=== PATIENT | male | born 1940 | race Caucasian/White ===

== ENCOUNTER 2021-11-17 14:16 | Inpatient (IN) ==
[2021-11-17] MEDS ORDERED: Dextrose Gel 15 GM/37.5 ML TUBE PO PRN ×2 (17:16)
[2021-11-17] MEDS ORDERED: *HR* Dextrose 50 % in Water (Syg) 50 ML SYRINGE IVP PRN (17:16)
[2021-11-17] MEDS ORDERED: D5% in Water 1,000 ML IVC PRN (17:16)
[2021-11-17] MEDS: Insulin LISPRO 300 UNITS/3 ML VIAL SUBQ SCH ×2 (17:48→20:26)
[2021-11-17] MEDS: *HR* OxyCODONE Immed Rel 5 MG TABLET PO PRN (18:16)
[2021-11-17] MEDS: Furosemide 20 MG TABLET PO SCH (18:17)
[2021-11-17] MEDS: *HR* Amiodarone 200 MG TABLET PO SCH (20:26)
[2021-11-17] MEDS: Sennosides/Docusate Sodium TABLET PO SCH (20:26)
[2021-11-17] MEDS: polyethylene glycoL 3350 17 GM POWD.PACK PO SCH (20:26)
[2021-11-18 04:29] LABS: Basophils # 0.1 K/mcL (0.0-0.2); Basophils % 0.8 %; Eosinophils # 0.6 K/mcL (0.0-0.6); Eosinophils % 6.2 %; Hematocrit 33.2 % (37.5-50.1); Hemoglobin 10.7 g/dL (12.9-16.9); Immature Granulocytes % 0.6 % (0-4); Lymphocytes # 0.7 K/mcL (0.6-4.6); Lymphocytes % 7.2 %; Mean Corpuscular HGB Conc 32.2 g/dL (31.6-35.5); Mean Corpuscular Hemoglobin 25.7 pg (28.0-33.3); Mean Corpuscular Volume 79.6 fL (83.0-100.0); Mean Platelet Volume 11.4 fL (9.4-12.4); Monocytes % 10.2 %; Platelet Count 248 K/mcL (140-400); Red Blood Count 4.17 M/mcL (4.19-5.50); Red Cell Distribution Width 15.1 % (11.5-14.5); White Blood Count 9.3 K/mcL (4.3-11.1)
[2021-11-18 04:32] LABS: Platelet Estimate Normal (Normal)
[2021-11-18 04:44] LABS: Calcium 9.8 mg/dL (8.6-10.3); Potassium 4.7 mEq/L (3.5-5.1)
[2021-11-18] MEDS ORDERED: *HR* Enoxaparin 40 MG/0.4 ML SYRINGE SQ SCH (07:00)
[2021-11-18] MEDS: *HR* OxyCODONE Immed Rel 5 MG TABLET PO PRN ×2 (08:01→16:38)
[2021-11-18] MEDS: *HR* Amiodarone 200 MG TABLET PO SCH ×2 (08:04→20:44)
[2021-11-18] MEDS: Furosemide 20 MG TABLET PO SCH ×2 (08:06→16:36)
[2021-11-18] MEDS: polyethylene glycoL 3350 17 GM POWD.PACK PO SCH ×2 (08:07→20:45)
[2021-11-18] MEDS: Aspirin 81 MG TAB.CHEW PO SCH (08:10)
[2021-11-18] MEDS: Cholecalciferol (D-3) 1,000 UNIT (25MCG) TABLET PO SCH (08:11)
[2021-11-18] MEDS: Metoprolol XL (24 HR) Succ 50 MG TAB.ER.24H PO SCH (08:12)
[2021-11-18] MEDS: Zinc Sulfate 220 MG CAPSULE PO SCH (08:12)
[2021-11-18] MEDS: Insulin LISPRO 300 UNITS/3 ML VIAL SUBQ SCH ×4 (11:31→20:46)
[2021-11-18] MEDS: Sennosides/Docusate Sodium TABLET PO SCH ×2 (11:33→20:45)
[2021-11-18] MEDS: FLUoxetine HCl 10 MG CAPSULE PO SCH (12:53)
[2021-11-18] MEDS ORDERED: Nitroglycerin 0.4 MG TAB.SUBL SL PRN (19:43)
[2021-11-18 19:51] LABS: Estimated Average Glucose 154 mg/dl
[2021-11-18] MEDS: Acetaminophen 325 MG TABLET PO PRN (20:45)
[2021-11-19] MEDS: polyethylene glycoL 3350 17 GM POWD.PACK PO SCH ×2 (07:48→21:13)
[2021-11-19] MEDS: Sennosides/Docusate Sodium TABLET PO SCH ×2 (07:49→21:06)
[2021-11-19] MEDS: Insulin LISPRO 300 UNITS/3 ML VIAL SUBQ SCH ×4 (07:57→21:06)
[2021-11-19] MEDS: Metoprolol XL (24 HR) Succ 50 MG TAB.ER.24H PO SCH (07:58)
[2021-11-19] MEDS: Furosemide 20 MG TABLET PO SCH ×2 (07:58→17:05)
[2021-11-19] MEDS: Zinc Sulfate 220 MG CAPSULE PO SCH (07:58)
[2021-11-19] MEDS: *HR* Amiodarone 200 MG TABLET PO SCH ×2 (07:58→21:05)
[2021-11-19] MEDS: Cholecalciferol (D-3) 1,000 UNIT (25MCG) TABLET PO SCH (07:58)
[2021-11-19] MEDS: FLUoxetine HCl 10 MG CAPSULE PO SCH (07:58)
[2021-11-19] MEDS: Aspirin 81 MG TAB.CHEW PO SCH (07:58)
[2021-11-19] MEDS: *HR* OxyCODONE Immed Rel 5 MG TABLET PO PRN (13:06)
[2021-11-19] MEDS: Acetaminophen 325 MG TABLET PO PRN (21:06)
[2021-11-20 05:25] LABS: Basophils # 0.1 K/mcL (0.0-0.2); Basophils % 0.7 %; Eosinophils # 0.5 K/mcL (0.0-0.6); Eosinophils % 5.6 %; Hemoglobin 10.7 g/dL (12.9-16.9); Immature Granulocytes % 0.6 % (0-4); Lymphocytes # 0.7 K/mcL (0.6-4.6); Lymphocytes % 7.9 %; Mean Corpuscular HGB Conc 32.4 g/dL (31.6-35.5); Mean Corpuscular Hemoglobin 25.9 pg (28.0-33.3); Mean Corpuscular Volume 79.9 fL (83.0-100.0); Mean Platelet Volume 11.4 fL (9.4-12.4); Monocytes # 0.9 K/mcL (0.0-1.3); Monocytes % 10.4 %; Neutrophils # 6.6 K/mcL (1.6-8.9); Platelet Count 258 K/mcL (140-400); Red Blood Count 4.13 M/mcL (4.19-5.50); Red Cell Distribution Width 15.5 % (11.5-14.5); Segmented Neutrophils % 74.8 %; White Blood Count 8.9 K/mcL (4.3-11.1)
[2021-11-20 05:41] LABS: Calcium 9.8 mg/dL (8.6-10.3)
[2021-11-20] MEDS: Insulin LISPRO 300 UNITS/3 ML VIAL SUBQ SCH ×4 (09:27→21:20)
[2021-11-20] MEDS: Metoprolol XL (24 HR) Succ 50 MG TAB.ER.24H PO SCH (09:28)
[2021-11-20] MEDS: Aspirin 81 MG TAB.CHEW PO SCH (09:29)
[2021-11-20] MEDS: *HR* Amiodarone 200 MG TABLET PO SCH ×2 (09:29→21:23)
[2021-11-20] MEDS: Furosemide 20 MG TABLET PO SCH (09:29)
[2021-11-20] MEDS: Cholecalciferol (D-3) 1,000 UNIT (25MCG) TABLET PO SCH (09:29)
[2021-11-20] MEDS: Zinc Sulfate 220 MG CAPSULE PO SCH (09:29)
[2021-11-20] MEDS: FLUoxetine HCl 10 MG CAPSULE PO SCH (09:29)
[2021-11-20] MEDS: polyethylene glycoL 3350 17 GM POWD.PACK PO SCH ×2 (09:30→21:23)
[2021-11-20] MEDS: *HR* OxyCODONE Immed Rel 5 MG TABLET PO PRN (09:30)
[2021-11-20] MEDS: Sennosides/Docusate Sodium TABLET PO SCH ×2 (09:31→21:22)
[2021-11-21 05:10] LABS: Basophils # 0.1 K/mcL (0.0-0.2); Basophils % 0.6 %; Eosinophils # 0.4 K/mcL (0.0-0.6); Eosinophils % 3.7 %; Immature Granulocytes % 0.5 % (0-4); Lymphocytes # 0.6 K/mcL (0.6-4.6); Lymphocytes % 5.3 %; Mean Corpuscular HGB Conc 32.4 g/dL (31.6-35.5); Mean Corpuscular Hemoglobin 25.9 pg (28.0-33.3); Mean Platelet Volume 11.6 fL (9.4-12.4); Monocytes % 8.8 %; Neutrophils # 9.3 K/mcL (1.6-8.9); Platelet Count 267 K/mcL (140-400); Red Blood Count 4.25 M/mcL (4.19-5.50); Red Cell Distribution Width 15.5 % (11.5-14.5); Segmented Neutrophils % 81.1 %; White Blood Count 11.5 K/mcL (4.3-11.1)
[2021-11-21 05:25] LABS: Albumin 3.4 g/dL (3.5-5.7); Albumin/Globulin Ratio 1.1 (1.1-2.2); Bilirubin,Total 0.9 mg/dL (0.3-1.0); Calcium 9.8 mg/dL (8.6-10.3); Potassium 4.2 mEq/L (3.5-5.1); Total Protein 6.4 g/dL (6.4-8.9)
[2021-11-21] MEDS: Insulin LISPRO 300 UNITS/3 ML VIAL SUBQ SCH ×3 (09:19→17:50)
[2021-11-21] MEDS: Sennosides/Docusate Sodium TABLET PO SCH (09:21)
[2021-11-21] MEDS: polyethylene glycoL 3350 17 GM POWD.PACK PO SCH (09:21)
[2021-11-21] MEDS: Aspirin 81 MG TAB.CHEW PO SCH (10:15)
[2021-11-21] MEDS: Metoprolol XL (24 HR) Succ 50 MG TAB.ER.24H PO SCH (10:15)
[2021-11-21] MEDS: Cholecalciferol (D-3) 1,000 UNIT (25MCG) TABLET PO SCH (10:15)
[2021-11-21] MEDS: *HR* Amiodarone 200 MG TABLET PO SCH ×2 (10:15→20:34)
[2021-11-21] MEDS: FLUoxetine HCl 10 MG CAPSULE PO SCH (10:15)
[2021-11-21] MEDS: Zinc Sulfate 220 MG CAPSULE PO SCH (10:16)
[2021-11-21] MEDS: Acetaminophen 325 MG TABLET PO PRN (20:34)
[2021-11-22 04:34] LABS: Basophils # 0.1 K/mcL (0.0-0.2); Basophils % 0.4 %; Eosinophils # 0.5 K/mcL (0.0-0.6); Eosinophils % 3.2 %; Hematocrit 35.7 % (37.5-50.1); Hemoglobin 11.4 g/dL (12.9-16.9); Immature Granulocytes % 0.5 % (0-4); Lymphocytes # 0.7 K/mcL (0.6-4.6); Mean Corpuscular HGB Conc 31.9 g/dL (31.6-35.5); Mean Corpuscular Hemoglobin 25.7 pg (28.0-33.3); Mean Corpuscular Volume 80.4 fL (83.0-100.0); Mean Platelet Volume 11.6 fL (9.4-12.4); Monocytes # 1.2 K/mcL (0.0-1.3); Monocytes % 8.4 %; Platelet Count 281 K/mcL (140-400); Red Blood Count 4.44 M/mcL (4.19-5.50); Red Cell Distribution Width 15.7 % (11.5-14.5); Segmented Neutrophils % 82.5 %; White Blood Count 14.6 K/mcL (4.3-11.1)
[2021-11-22 04:35] LABS: Neutrophils # 12.1 K/mcL (1.6-8.9)
[2021-11-22 04:49] LABS: Calcium 9.8 mg/dL (8.6-10.3); Potassium 4.3 mEq/L (3.5-5.1)
[2021-11-22] MEDS: Insulin LISPRO 300 UNITS/3 ML VIAL SUBQ SCH ×5 (05:45→20:20)
[2021-11-22] MEDS: Sennosides/Docusate Sodium TABLET PO SCH ×2 (05:46→09:49)
[2021-11-22] MEDS: polyethylene glycoL 3350 17 GM POWD.PACK PO SCH ×2 (05:46→09:49)
[2021-11-22] MEDS: Zinc Sulfate 220 MG CAPSULE PO SCH (09:50)
[2021-11-22] MEDS: Cholecalciferol (D-3) 1,000 UNIT (25MCG) TABLET PO SCH (09:50)
[2021-11-22] MEDS: Aspirin 81 MG TAB.CHEW PO SCH (09:50)
[2021-11-22] MEDS: *HR* Amiodarone 200 MG TABLET PO SCH ×2 (09:50→20:44)
[2021-11-22] MEDS: FLUoxetine HCl 10 MG CAPSULE PO SCH (09:50)
[2021-11-22] MEDS: Metoprolol XL (24 HR) Succ 50 MG TAB.ER.24H PO SCH (09:50)
[2021-11-22 12:04] LABS: Bilirubin,Urine Negative (Negative); Blood,Urine Large (Negative); Clarity,Urine Clear (Clear); Color,Urine Yellow (Yellow); Glucose,Urine (UA) Normal (Normal); Ketones,Urine Negative (Negative); Leukocyte Esterase,Urine Small (Negative); Nitrite,Urine Positive (Negative); Protein,Urine 100 mg/dL (Neg-Trace); Specific Gravity,Urine >= 1.030 (1.010-1.025); Urobilinogen,Urine Normal (Normal)
[2021-11-22 12:11] LABS: Bacteria,Urine Many per hpf (None-Few); RBC,Urine TNTC per hpf (0-3); WBC,Urine TNTC per hpf (0-3)
[2021-11-22] MEDS ORDERED: 0.9 % Sodium Chloride 1,000 ML IVC SCH (14:30)
[2021-11-22] MEDS: cefTRIAXone 1,000 MG in Water for inj. (sterile) 10 ML IVP SCH (15:21)
[2021-11-22] MEDS: *HR* OxyCODONE Immed Rel 5 MG TABLET PO PRN (20:44)
[2021-11-23] MEDS: Sennosides/Docusate Sodium TABLET PO SCH ×3 (00:15→20:32)
[2021-11-23] MEDS: polyethylene glycoL 3350 17 GM POWD.PACK PO SCH ×3 (00:15→20:32)
[2021-11-23 04:32] LABS: Basophils # 0.1 K/mcL (0.0-0.2); Basophils % 0.4 %; Eosinophils # 0.4 K/mcL (0.0-0.6); Eosinophils % 2.9 %; Hematocrit 32.9 % (37.5-50.1); Hemoglobin 10.6 g/dL (12.9-16.9); Immature Granulocytes % 0.4 % (0-4); Lymphocytes # 0.6 K/mcL (0.6-4.6); Lymphocytes % 4.3 %; Mean Corpuscular HGB Conc 32.2 g/dL (31.6-35.5); Mean Corpuscular Hemoglobin 26.3 pg (28.0-33.3); Mean Corpuscular Volume 81.6 fL (83.0-100.0); Mean Platelet Volume 11.7 fL (9.4-12.4); Monocytes % 7.2 %; Platelet Count 282 K/mcL (140-400); Red Blood Count 4.03 M/mcL (4.19-5.50); Red Cell Distribution Width 15.8 % (11.5-14.5); Segmented Neutrophils % 84.8 %; White Blood Count 13.5 K/mcL (4.3-11.1)
[2021-11-23 04:34] LABS: Neutrophils # 11.5 K/mcL (1.6-8.9)
[2021-11-23 04:35] LABS: Platelet Estimate Normal (Normal)
[2021-11-23 04:44] LABS: Calcium 9.8 mg/dL (8.6-10.3)
[2021-11-23] MEDS: Insulin LISPRO 300 UNITS/3 ML VIAL SUBQ SCH ×4 (07:35→20:32)
[2021-11-23] MEDS: Aspirin 81 MG TAB.CHEW PO SCH (08:52)
[2021-11-23] MEDS: Zinc Sulfate 220 MG CAPSULE PO SCH (08:52)
[2021-11-23] MEDS: FLUoxetine HCl 10 MG CAPSULE PO SCH (08:52)
[2021-11-23] MEDS: Cholecalciferol (D-3) 1,000 UNIT (25MCG) TABLET PO SCH (08:52)
[2021-11-23] MEDS: Metoprolol XL (24 HR) Succ 50 MG TAB.ER.24H PO SCH (08:52)
[2021-11-23] MEDS: *HR* Amiodarone 200 MG TABLET PO SCH ×2 (08:53→20:31)
[2021-11-23] MEDS: cefTRIAXone 1,000 MG in Water for inj. (sterile) 10 ML IVP SCH (16:07)
[2021-11-23] MEDS: Acetaminophen 325 MG TABLET PO PRN (23:28)
[2021-11-24 04:47] LABS: Basophils # 0.1 K/mcL (0.0-0.2); Basophils % 0.5 %; Eosinophils # 0.3 K/mcL (0.0-0.6); Eosinophils % 2.8 %; Hematocrit 32.4 % (37.5-50.1); Hemoglobin 10.5 g/dL (12.9-16.9); Immature Granulocytes % 0.4 % (0-4); Lymphocytes # 0.6 K/mcL (0.6-4.6); Mean Corpuscular HGB Conc 32.4 g/dL (31.6-35.5); Mean Corpuscular Hemoglobin 26.4 pg (28.0-33.3); Mean Corpuscular Volume 81.6 fL (83.0-100.0); Mean Platelet Volume 12.3 fL (9.4-12.4); Monocytes # 0.8 K/mcL (0.0-1.3); Monocytes % 6.9 %; Neutrophils # 10.2 K/mcL (1.6-8.9); Platelet Count 274 K/mcL (140-400); Red Blood Count 3.97 M/mcL (4.19-5.50); Red Cell Distribution Width 15.6 % (11.5-14.5); Segmented Neutrophils % 84.4 %; White Blood Count 12.1 K/mcL (4.3-11.1)
[2021-11-24 05:01] LABS: Calcium 9.6 mg/dL (8.6-10.3); Potassium 4.5 mEq/L (3.5-5.1)
[2021-11-24] MEDS: Insulin LISPRO 300 UNITS/3 ML VIAL SUBQ SCH ×4 (07:59→20:09)
[2021-11-24] MEDS: polyethylene glycoL 3350 17 GM POWD.PACK PO SCH ×2 (08:00→20:10)
[2021-11-24] MEDS: Sennosides/Docusate Sodium TABLET PO SCH ×2 (08:00→20:10)
[2021-11-24] MEDS: *HR* Amiodarone 200 MG TABLET PO SCH ×2 (08:11→20:24)
[2021-11-24] MEDS: Metoprolol XL (24 HR) Succ 50 MG TAB.ER.24H PO SCH (08:11)
[2021-11-24] MEDS: Zinc Sulfate 220 MG CAPSULE PO SCH (08:12)
[2021-11-24] MEDS: Aspirin 81 MG TAB.CHEW PO SCH (08:12)
[2021-11-24] MEDS: Cholecalciferol (D-3) 1,000 UNIT (25MCG) TABLET PO SCH (08:12)
[2021-11-24] MEDS: FLUoxetine HCl 10 MG CAPSULE PO SCH (08:12)
[2021-11-24] MEDS: Acetaminophen 325 MG TABLET PO PRN ×2 (09:01→16:12)
[2021-11-24] MEDS: cefTRIAXone 1,000 MG in Water for inj. (sterile) 10 ML IVP SCH (16:11)
[2021-11-25] MEDS: Acetaminophen 325 MG TABLET PO PRN (01:12)
[2021-11-25] MEDS: Sennosides/Docusate Sodium TABLET PO SCH ×2 (08:11→20:17)
[2021-11-25] MEDS: Cholecalciferol (D-3) 1,000 UNIT (25MCG) TABLET PO SCH (08:11)
[2021-11-25] MEDS: Aspirin 81 MG TAB.CHEW PO SCH (08:11)
[2021-11-25] MEDS: Zinc Sulfate 220 MG CAPSULE PO SCH (08:11)
[2021-11-25] MEDS: FLUoxetine HCl 10 MG CAPSULE PO SCH (08:12)
[2021-11-25] MEDS: Metoprolol XL (24 HR) Succ 50 MG TAB.ER.24H PO SCH (08:12)
[2021-11-25] MEDS: Insulin LISPRO 300 UNITS/3 ML VIAL SUBQ SCH ×4 (08:18→20:05)
[2021-11-25] MEDS: *HR* Amiodarone 200 MG TABLET PO SCH (09:25)
[2021-11-25] MEDS: polyethylene glycoL 3350 17 GM POWD.PACK PO SCH ×2 (09:47→20:17)
[2021-11-25] MEDS: Mirtazapine 15 MG TABLET PO SCH ×2 (10:36→20:14)
[2021-11-25] MEDS: Cefdinir 300 MG CAPSULE PO SCH (18:11)
[2021-11-26 05:22] LABS: Basophils # 0.1 K/mcL (0.0-0.2); Basophils % 0.5 %; Eosinophils # 0.3 K/mcL (0.0-0.6); Eosinophils % 2.3 %; Hematocrit 30.2 % (37.5-50.1); Immature Granulocytes % 0.3 % (0-4); Lymphocytes # 0.7 K/mcL (0.6-4.6); Lymphocytes % 5.6 %; Mean Corpuscular HGB Conc 33.1 g/dL (31.6-35.5); Mean Corpuscular Hemoglobin 26.5 pg (28.0-33.3); Mean Corpuscular Volume 79.9 fL (83.0-100.0); Mean Platelet Volume 12.5 fL (9.4-12.4); Monocytes # 0.9 K/mcL (0.0-1.3); Monocytes % 6.9 %; Neutrophils # 10.8 K/mcL (1.6-8.9); Platelet Count 264 K/mcL (140-400); Red Blood Count 3.78 M/mcL (4.19-5.50); Red Cell Distribution Width 15.3 % (11.5-14.5); Segmented Neutrophils % 84.4 %; White Blood Count 12.8 K/mcL (4.3-11.1)
[2021-11-26 05:28] LABS: Calcium 9.5 mg/dL (8.6-10.3); Magnesium 1.9 mg/dL (1.6-2.6); Potassium 3.6 mEq/L (3.5-5.1)
[2021-11-26] MEDS: Insulin LISPRO 300 UNITS/3 ML VIAL SUBQ SCH ×4 (07:32→19:37)
[2021-11-26] MEDS: Cholecalciferol (D-3) 1,000 UNIT (25MCG) TABLET PO SCH (07:57)
[2021-11-26] MEDS: FLUoxetine HCl 10 MG CAPSULE PO SCH (07:57)
[2021-11-26] MEDS: Zinc Sulfate 220 MG CAPSULE PO SCH (07:57)
[2021-11-26] MEDS: Cefdinir 300 MG CAPSULE PO SCH (07:57)
[2021-11-26] MEDS: *HR* Amiodarone 200 MG TABLET PO SCH (07:57)
[2021-11-26] MEDS: Aspirin 81 MG TAB.CHEW PO SCH (07:57)
[2021-11-26] MEDS: Metoprolol XL (24 HR) Succ 50 MG TAB.ER.24H PO SCH (07:58)
[2021-11-26] MEDS: Sennosides/Docusate Sodium TABLET PO SCH ×2 (07:58→19:50)
[2021-11-26] MEDS: polyethylene glycoL 3350 17 GM POWD.PACK PO SCH ×2 (07:58→19:50)
[2021-11-26] MEDS: Mirtazapine 15 MG TABLET PO SCH (19:48)
[2021-11-27] MEDS: Insulin LISPRO 300 UNITS/3 ML VIAL SUBQ SCH ×4 (08:16→20:18)
[2021-11-27] MEDS: *HR* Amiodarone 200 MG TABLET PO SCH (09:43)
[2021-11-27] MEDS: Sennosides/Docusate Sodium TABLET PO SCH ×2 (09:47→20:40)
[2021-11-27] MEDS: Aspirin 81 MG TAB.CHEW PO SCH (09:47)
[2021-11-27] MEDS: polyethylene glycoL 3350 17 GM POWD.PACK PO SCH ×2 (09:47→20:40)
[2021-11-27] MEDS: FLUoxetine HCl 10 MG CAPSULE PO SCH ×2 (09:47→10:31)
[2021-11-27] MEDS: Cefdinir 300 MG CAPSULE PO SCH ×2 (09:47→10:31)
[2021-11-27] MEDS: Metoprolol XL (24 HR) Succ 50 MG TAB.ER.24H PO SCH ×2 (09:47→10:31)
[2021-11-27] MEDS: Cholecalciferol (D-3) 1,000 UNIT (25MCG) TABLET PO SCH (09:47)
[2021-11-27] MEDS: Zinc Sulfate 220 MG CAPSULE PO SCH (09:48)
[2021-11-27] MEDS: Mirtazapine 15 MG TABLET PO SCH (20:38)
[2021-11-28 05:16] LABS: Basophils # 0.1 K/mcL (0.0-0.2); Basophils % 0.7 %; Eosinophils # 0.5 K/mcL (0.0-0.6); Hematocrit 32.7 % (37.5-50.1); Hemoglobin 10.5 g/dL (12.9-16.9); Immature Granulocytes % 0.3 % (0-4); Lymphocytes # 0.7 K/mcL (0.6-4.6); Lymphocytes % 7.5 %; Mean Corpuscular HGB Conc 32.1 g/dL (31.6-35.5); Mean Corpuscular Hemoglobin 25.7 pg (28.0-33.3); Mean Platelet Volume 12.8 fL (9.4-12.4); Monocytes # 0.9 K/mcL (0.0-1.3); Neutrophils # 7.2 K/mcL (1.6-8.9); Platelet Count 316 K/mcL (140-400); Red Blood Count 4.09 M/mcL (4.19-5.50); Red Cell Distribution Width 15.3 % (11.5-14.5); Segmented Neutrophils % 76.5 %; White Blood Count 9.4 K/mcL (4.3-11.1)
[2021-11-28 05:30] LABS: Calcium 9.4 mg/dL (8.6-10.3); Potassium 3.8 mEq/L (3.5-5.1)
[2021-11-28] MEDS: Insulin LISPRO 300 UNITS/3 ML VIAL SUBQ SCH ×4 (09:08→21:09)
[2021-11-28] MEDS: FLUoxetine HCl 10 MG CAPSULE PO SCH (09:08)
[2021-11-28] MEDS: Cefdinir 300 MG CAPSULE PO SCH (09:08)
[2021-11-28] MEDS: Metoprolol XL (24 HR) Succ 50 MG TAB.ER.24H PO SCH (09:08)
[2021-11-28] MEDS: Cholecalciferol (D-3) 1,000 UNIT (25MCG) TABLET PO SCH (09:08)
[2021-11-28] MEDS: *HR* Amiodarone 200 MG TABLET PO SCH (09:08)
[2021-11-28] MEDS: Zinc Sulfate 220 MG CAPSULE PO SCH (09:08)
[2021-11-28] MEDS: Aspirin 81 MG TAB.CHEW PO SCH (09:09)
[2021-11-28] MEDS: polyethylene glycoL 3350 17 GM POWD.PACK PO SCH ×2 (11:42→21:08)
[2021-11-28] MEDS: Sennosides/Docusate Sodium TABLET PO SCH ×2 (11:43→21:08)
[2021-11-28] MEDS: Mirtazapine 15 MG TABLET PO SCH (21:09)
[2021-11-29] MEDS: Insulin LISPRO 300 UNITS/3 ML VIAL SUBQ SCH ×4 (08:20→20:33)
[2021-11-29] MEDS: FLUoxetine HCl 10 MG CAPSULE PO SCH (08:28)
[2021-11-29] MEDS: Aspirin 81 MG TAB.CHEW PO SCH (08:28)
[2021-11-29] MEDS: Sennosides/Docusate Sodium TABLET PO SCH (08:28)
[2021-11-29] MEDS: *HR* Amiodarone 200 MG TABLET PO SCH (08:28)
[2021-11-29] MEDS: Zinc Sulfate 220 MG CAPSULE PO SCH (08:28)
[2021-11-29] MEDS: Cholecalciferol (D-3) 1,000 UNIT (25MCG) TABLET PO SCH (08:28)
[2021-11-29] MEDS: Metoprolol XL (24 HR) Succ 50 MG TAB.ER.24H PO SCH (08:34)
[2021-11-29] MEDS: polyethylene glycoL 3350 17 GM POWD.PACK PO SCH (12:22)
[2021-11-29] MEDS ORDERED: Sennosides/Docusate Sodium TABLET PO PRN (12:22)
[2021-11-29] MEDS ORDERED: polyethylene glycoL 3350 17 GM POWD.PACK PO PRN (12:22)
[2021-11-29] MEDS: Mirtazapine 15 MG TABLET PO SCH (20:39)
[2021-11-30] MEDS: Insulin LISPRO 300 UNITS/3 ML VIAL SUBQ SCH ×4 (08:05→20:46)
[2021-11-30] MEDS: Metoprolol XL (24 HR) Succ 50 MG TAB.ER.24H PO SCH (09:37)
[2021-11-30] MEDS: Aspirin 81 MG TAB.CHEW PO SCH (09:37)
[2021-11-30] MEDS: Cholecalciferol (D-3) 1,000 UNIT (25MCG) TABLET PO SCH (09:37)
[2021-11-30] MEDS: FLUoxetine HCl 10 MG CAPSULE PO SCH (09:37)
[2021-11-30] MEDS: *HR* Amiodarone 200 MG TABLET PO SCH (09:37)
[2021-11-30] MEDS: Zinc Sulfate 220 MG CAPSULE PO SCH (09:37)
[2021-11-30 14:13] LABS: Basophils # 0.1 K/mcL (0.0-0.2); Basophils % 0.5 %; Eosinophils # 0.4 K/mcL (0.0-0.6); Eosinophils % 3.6 %; Hematocrit 33.8 % (37.5-50.1); Hemoglobin 10.9 g/dL (12.9-16.9); Immature Granulocytes % 0.4 % (0-4); Lymphocytes # 0.7 K/mcL (0.6-4.6); Lymphocytes % 5.3 %; Mean Corpuscular HGB Conc 32.2 g/dL (31.6-35.5); Mean Corpuscular Hemoglobin 25.8 pg (28.0-33.3); Mean Corpuscular Volume 79.9 fL (83.0-100.0); Mean Platelet Volume 12.3 fL (9.4-12.4); Monocytes # 1.1 K/mcL (0.0-1.3); Monocytes % 8.9 %; Neutrophils # 9.9 K/mcL (1.6-8.9); Platelet Count 294 K/mcL (140-400); Red Blood Count 4.23 M/mcL (4.19-5.50); Red Cell Distribution Width 15.5 % (11.5-14.5); Segmented Neutrophils % 81.3 %; White Blood Count 12.2 K/mcL (4.3-11.1)
[2021-11-30 14:26] LABS: Calcium 9.5 mg/dL (8.6-10.3); Potassium 4.2 mEq/L (3.5-5.1)
[2021-11-30] MEDS: Mirtazapine 15 MG TABLET PO SCH (20:55)
[2021-12-01 05:05] LABS: Basophils # 0.1 K/mcL (0.0-0.2); Basophils % 0.6 %; Eosinophils # 0.3 K/mcL (0.0-0.6); Eosinophils % 2.5 %; Hematocrit 35.1 % (37.5-50.1); Hemoglobin 11.3 g/dL (12.9-16.9); Immature Granulocytes % 0.6 % (0-4); Lymphocytes # 0.6 K/mcL (0.6-4.6); Lymphocytes % 4.7 %; Mean Corpuscular HGB Conc 32.2 g/dL (31.6-35.5); Mean Corpuscular Volume 80.7 fL (83.0-100.0); Mean Platelet Volume 12.7 fL (9.4-12.4); Monocytes % 8.1 %; Neutrophils # 10.4 K/mcL (1.6-8.9); Platelet Count 308 K/mcL (140-400); Red Blood Count 4.35 M/mcL (4.19-5.50); Red Cell Distribution Width 15.4 % (11.5-14.5); Segmented Neutrophils % 83.5 %; White Blood Count 12.4 K/mcL (4.3-11.1)
[2021-12-01 05:21] LABS: Calcium 9.8 mg/dL (8.6-10.3); Potassium 5.4 mEq/L (3.5-5.1)
[2021-12-01 06:43] VITALS: BP 136/76; PULSE 57; RESP 15; TEMP 98.6; O2SAT 95
[2021-12-01] MEDS: Insulin LISPRO 300 UNITS/3 ML VIAL SUBQ SCH ×2 (07:10→12:19)
[2021-12-01] MEDS ORDERED: 0.9 % Sodium Chloride 1,000 ML IVC SCH (09:15)
[2021-12-01] MEDS: Metoprolol XL (24 HR) Succ 50 MG TAB.ER.24H PO SCH (09:32)
[2021-12-01] MEDS: *HR* Amiodarone 200 MG TABLET PO SCH (09:32)
[2021-12-01] MEDS: Cholecalciferol (D-3) 1,000 UNIT (25MCG) TABLET PO SCH (09:32)
[2021-12-01] MEDS: Zinc Sulfate 220 MG CAPSULE PO SCH (09:32)
[2021-12-01] MEDS: Aspirin 81 MG TAB.CHEW PO SCH (09:33)
[2021-12-01] MEDS: FLUoxetine HCl 10 MG CAPSULE PO SCH (09:33)
== END 2021-12-01 16:00 | DRG 949 ==
LOC: INPGRE 16:51
PROVIDERS: ADMIT Family Medicine; ATTEND Family Medicine